=== PATIENT | female | born 1935 | race Caucasian/White ===

== ENCOUNTER 2018-10-31 09:35 | Inpatient (IN) | payer MEDICARE, OTHER ==
[~2018-10-31 09:35] MED LIST: DESFLURANE 15 MIN; DEXAMETHASONE 4 MG/ML 5 ML INJ; LIDOCAINE 2% (SDV) 5 ML INJ
[2018-10-31 10:26] LABS: ADD MAN DIFF? NO
[2018-10-31 10:27] LABS: BASOPHIL # 0.1 10^3/ul (0.0-0.1); BASOPHILS % 0.8 % (0.0-2.0); EOSINOPHILS # 0.1 10^3/ul (0.0-0.5); EOSINOPHILS % 1.6 % (0.0-7.0); HEMATOCRIT 36.9 % (37.0-47.0); HEMOGLOBIN 11.8 g/dl (12.0-16.0); LYMPHOCYTES # 4.1 10^3/ul (0.8-2.9); LYMPHOCYTES % 48.1 % (15.0-51.0); MEAN CORPUSCULAR HEMOGLOBIN 28.3 pg (29.0-33.0); MEAN CORPUSCULAR VOLUME 88.5 fl (82.0-101.0); MEAN PLATELET VOLUME 9.7 fl (7.4-10.4); MONOCYTE # 0.7 10^3/ul (0.3-0.9); MONOCYTES % 7.9 % (0.0-11.0); NEUTROPHIL # 3.5 10^3/ul (1.6-7.5); NEUTROPHILS % 41.3 % (39.0-77.0); PLATELET COUNT 274 10^3/UL (140-415); RED BLOOD COUNT 4.17 10^6/ul (4.20-5.40); RED CELL DISTRIBUTION WIDTH 13.9 % (11.5-14.5)
[2018-10-31 10:27] LABS: WHITE BLOOD COUNT 8.6 10^3/ul (4.8-10.8)
[2018-10-31 10:46] LABS: ANION GAP 12 (5-13); BLOOD UREA NITROGEN 19 mg/dl (7-20); CALCIUM 9.5 mg/dl (8.4-10.2); CARBON DIOXIDE 24 mmol/L (21-31); CHLORIDE 104 mmol/L (97-110); CREATININE 1.03 mg/dl (0.44-1.00); GLUCOSE 175 mg/dl (70-220); POTASSIUM 4.3 mmol/L (3.5-5.1); SODIUM 140 mmol/L (135-144)
[2018-10-31 10:51] LABS: INR 0.95; PROTIME 12.8 Sec (11.9-14.9)
[2018-10-31 10:57] LABS: PARTIAL THROMBOPLASTIN TIME 36.6 Sec (23.0-35.0)
[2018-10-31] MEDS: DIPHTH/TET/ACEL PERTUSS (ADULT) 0.5 ML VIAL IM* (11:20)
[2018-10-31] MEDS: CEFAZOLIN 1 GM/50 ML (PMX) 50 ML IVPB (11:21)
[2018-10-31] MEDS: morphine 2 MG INJ IV (11:46)
[2018-10-31] MEDS ORDERED: NACL 0.9% 3 ML SYG IV (12:30)
[2018-10-31] MEDS ORDERED: ACETAMINOPHEN 325 MG TAB PO (12:30)
[2018-10-31] MEDS ORDERED: ONDANSETRON 4 MG INJ IV ×2 (12:30→13:30)
[2018-10-31] MEDS ORDERED: morphine 2 MG INJ IV (12:30)
[2018-10-31] MEDS ORDERED: BUPIVACAINE 0.25% (MPF) 30 ML INJ (12:31)
[2018-10-31] MEDS ORDERED: GELATIN SIZE 100 SPONGE (12:31)
[2018-10-31] MEDS ORDERED: LIDOCAINE 1% (MPF) 30 ML INJ (12:31)
[2018-10-31] MEDS ORDERED: POLYMYXIN/BACITRACIN 1L IRRIG (12:32)
[2018-10-31] MEDS ORDERED: THROMBIN 5000 UNIT VIAL (12:32)
[2018-10-31] MEDS ORDERED: PROPOFOL 20 ML (13:28)
[2018-10-31] MEDS ORDERED: NEOSTIGMINE 3 MG/3 ML SYRINGE (13:28)
[2018-10-31] MEDS ORDERED: ROCURONIUM 50 MG INJ (13:28)
[2018-10-31] MEDS ORDERED: CEFAZOLIN 1 GM INJ (13:28)
[2018-10-31] MEDS ORDERED: GLYCOPYRROLATE 0.4 MG INJ (13:28)
[2018-10-31] MEDS ORDERED: FENTAnyl 50 MCG/ML VIAL (13:29)
[2018-10-31] MEDS ORDERED: ONDANSETRON 4 MG INJ (13:29)
[2018-10-31] MEDS ORDERED: MIDAZOLAM 1 MG/ML 2 ML INJ (13:29)
[2018-10-31] MEDS ORDERED: MEPERIDINE 25 MG INJ IV (13:30)
[2018-10-31] MEDS ORDERED: TRIMETHOBENZAMIDE 100 MG/ML VIAL IM (13:30)
[2018-10-31] MEDS ORDERED: FENTAnyl 50 MCG/ML VIAL IV ×3 (13:30)
[2018-10-31] MEDS ORDERED: DIPHENHYDRAMINE 50 MG INJ IV (13:30)
[2018-10-31] MEDS ORDERED: HYDROmorphONE 1 MG/5 ML IV SYRINGE IV ×3 (13:30)
[2018-10-31] MEDS ORDERED: LABETALOL HCL 20MG INJ IV (13:30)
[2018-10-31] MEDS ORDERED: MIDAZOLAM 1 MG/ML 2 ML INJ IV (13:30)
[2018-10-31] MEDS ORDERED: ALBUTEROL 0.083% (NEB) 2.5 MG/3 ML AMP HHN (13:30)
[2018-10-31] MEDS ORDERED: hydrALAzine 20 MG INJ IV ×2 (13:30→15:00)
[2018-10-31] MEDS ORDERED: OXYCODONE/ACETAMINOPHEN (5/325) TAB PO ×2 (13:30)
[2018-10-31] MEDS ORDERED: EPHEDrine SULFATE 50 MG/5 ML SYG IV (13:30)
[2018-10-31] MEDS ORDERED: IPRATROPIUM (NEB) 0.5 MG/2.5 ML AMP HHN (13:30)
[2018-10-31] MEDS ORDERED: SUGAMMADEX SODIUM 200 MG/2 ML VIAL IV (14:05)
[2018-10-31] MEDS ORDERED: LABETALOL HCL 20MG INJ (14:10)
[2018-10-31] MEDS: HEPARIN 1000 UNITS/ML 10 ML INJ (14:32)
[2018-10-31] MEDS ORDERED: ALPRAZOLAM 0.5 MG TAB PO (15:00)
[2018-10-31 16:14] LABS: HEMATOCRIT 32.4 % (37.0-47.0); HEMOGLOBIN 10.6 g/dl (12.0-16.0)
[2018-10-31] MEDS: SOD CHLORIDE 0.9% 1,000 ML IV (17:13)
[2018-10-31] MEDS ORDERED: DEXTROSE 50% 50 ML SYRINGE IV ×2 (17:30)
[2018-10-31] MEDS ORDERED: GLUCOSE GEL 15 GRAM TUBE PO ×2 (17:30)
[2018-10-31] MEDS ORDERED: GLUCAGON 1 MG INJ IM (17:30)
[2018-10-31] MEDS ORDERED: GLUCOSE GEL 15 GRAM TUBE BUCCAL (17:30)
[2018-10-31] MEDS: INSULIN ASPART [NOVOLOG] 3 ML PEN SC ×3 (18:08→20:52)
[2018-10-31] MEDS: HYDROCODONE/APAP (5/325) TAB PO (20:07)
[2018-10-31] MEDS: AMLODIPINE 10 MG TAB PO (20:50)
[2018-10-31] MEDS: CYCLOSPORINE 0.05% OPH DROPERETTE BOTH EYES (20:50)
[2018-10-31] MEDS ORDERED: morphine SULFATE/PF (2 MG/2 ML) SYG IV (22:00)
[2018-11-01] MEDS: SOD CHLORIDE 0.9% 1,000 ML IV ×2 (01:22→06:34)
[2018-11-01] MEDS: HYDROCODONE/APAP (5/325) TAB PO ×2 (02:08→06:37)
[2018-11-01] MEDS: INSULIN ASPART [NOVOLOG] 3 ML PEN SC ×5 (02:28→12:26)
[2018-11-01 05:10] LABS: ADD MAN DIFF? NO
[2018-11-01 05:16] LABS: WHITE BLOOD COUNT 6.1 10^3/ul (4.8-10.8)
[2018-11-01 05:16] LABS: BASOPHILS % 0.2 % (0.0-2.0); HEMATOCRIT 29.7 % (37.0-47.0); HEMOGLOBIN 9.7 g/dl (12.0-16.0); LYMPHOCYTES # 1.2 10^3/ul (0.8-2.9); LYMPHOCYTES % 19.3 % (15.0-51.0); MEAN CORPUSCULAR HEMOGLOBIN 28.7 pg (29.0-33.0); MEAN CORPUSCULAR HGB CONC 32.7 g/dl (32.0-37.0); MEAN CORPUSCULAR VOLUME 87.9 fl (82.0-101.0); MEAN PLATELET VOLUME 10.1 fl (7.4-10.4); MONOCYTE # 0.1 10^3/ul (0.3-0.9); MONOCYTES % 2.3 % (0.0-11.0); NEUTROPHIL # 4.7 10^3/ul (1.6-7.5); NEUTROPHILS % 77.5 % (39.0-77.0); PLATELET COUNT 220 10^3/UL (140-415); RED BLOOD COUNT 3.38 10^6/ul (4.20-5.40); RED CELL DISTRIBUTION WIDTH 14.1 % (11.5-14.5)
[2018-11-01 05:44] LABS: ALANINE AMINOTRANSFERASE 20 IU/L (13-69); ALBUMIN 3.2 g/dl (3.3-4.9); ALBUMIN/GLOBULIN RATIO 1.28; ALKALINE PHOSPHATASE 50 IU/L (42-121); ANION GAP 12 (5-13); ASPARTATE AMINO TRANSFERASE 15 IU/L (15-46); BLOOD UREA NITROGEN 21 mg/dl (7-20); CALCIUM 8.6 mg/dl (8.4-10.2); CARBON DIOXIDE 19 mmol/L (21-31); CHLORIDE 108 mmol/L (97-110); CREATININE 0.93 mg/dl (0.44-1.00); GLUCOSE 293 mg/dl (70-220); POTASSIUM 4.8 mmol/L (3.5-5.1); SODIUM 139 mmol/L (135-144); TOTAL PROTEIN 5.7 g/dl (6.1-8.1)
[2018-11-01 05:51] LABS: PHOSPHORUS 3.5 mg/dl (2.5-4.9)
[2018-11-01 05:51] LABS: CHOL/HDL RATIO 2.7 RATIO; CHOLESTEROL 169 mg/dl (100-200); HDL CHOLESTEROL 61 mg/dl (33-92); LDL CHOLESTEROL,CALCULATED 95 mg/dl; MAGNESIUM 1.7 mg/dl (1.7-2.5); TRIGLYCERIDES 67 mg/dl (0-149)
[2018-11-01] MEDS: INSULIN GLARGINE [LANTus] (100 UNITS/ML) SYG SC (09:13)
[2018-11-01] MEDS: CYCLOSPORINE 0.05% OPH DROPERETTE BOTH EYES (09:16)
[2018-11-01] MEDS: METOPROLOL (XL) 25 MG TAB PO (09:17)
[2018-11-01] MEDS: LINAGLIPTIN 5 MG TABLET PO (09:17)
== END 2018-11-01 14:20 | disposition home or self-care (01) | DRG 909 ==
LOC: E/R 09:35 → REC 11:18 → MS1 13:59
PROC: 03QC0ZZ Repair Left Radial Artery, Open Approach (ICD-10-PCS; principal; 2018-10-31 13:26)
PROC: 03CC0ZZ Extirpation of Matter from Left Radial Artery, Open Approach (ICD-10-PCS; 2018-10-31 13:26)
DX: S65.112A Laceration of radial artery at wrist and hand level of left arm, initial encounter (principal); S61.512A Laceration without foreign body of left wrist, initial encounter; W26.8XXA Contact with other sharp object(s), not elsewhere classified, initial encounter; S61.502A Unspecified open wound of left wrist, initial encounter; E78.5 Hyperlipidemia, unspecified; E11.9 Type 2 diabetes mellitus without complications; I12.9 Hypertensive chronic kidney disease with stage 1 through stage 4 chronic kidney disease, or unspecified chronic kidney disease; N18.9 Chronic kidney disease, unspecified; D64.9 Anemia, unspecified
CPT/HCPCS: 36415; 71045; 80048; 80053; 80061; 82962; 83036; 83735; 84100; 85014; 85018; 85025; 85610; 85730; 86850; 86900; 86901; 90715; 93005; 99285-25